=== PATIENT | female | born 1985 | race Caucasian/White ===

== ENCOUNTER → 2016-11-19 | Outpatient (CLI) | payer OTHER ==
--- NOTE | 2016-11-19 14:48 | DIREP ---
PROCEDURE:OBSTETRICAL ULTRASOUND, 2nd AND 3rd TRIMESTER TECHNIQUE:Transabdominal ultrasound of the pelvic contents was performed. COMPARISON:None. INDICATIONS:ANATOMY, 2O WK IUP FINDINGS: NUMBER:Feng. POSITION:Cephalic AMNIOTIC FLUID VOLUME:GILBERTO - 14.33 cm PLACENTA:Posterior, with no evidence of placenta previa. CERVIX:3.09 cm length. HEART RATE:152 bpm BIPARIETAL DIAMETER:5.03 cm (21 W 2 D), 28.7 percentile HEAD CIRCUMFERENCE:19.36 cm (21 W 3 D), 33.5 percentile ABD CIRCUMFERENCE:16.66 cm (21 W 3 D), 41.3 percentile FEMUR LENGTH:3.48 cm (20 W 4 D), 17.9 percentile ESTIMATED WEIGHT:419.75 gm (0 lb, 15oz), 36.7 percentile ULTRASOUND GA:21 W 1 D ULTRASOUND SEBASTIAN:March 31, 2017 ANATOMY CEREBELLUM:2.15 cm NUCHAL FOLD:5.28 mm CISTERNA MAGNA:4.50 mm LATERAL CEREBRAL VENTRICLES:4.15 mm CHOROID PLEXUS:Normal. MIDLINE FALX:Normal. CAVUM SEPTUM PELLUCIDUM:Present. SPINE:Normal. HEART:Normal. UPPER LIP:Normal. STOMACH:Present. KIDNEYS:Normal - no hydronephrosis. BLADDER:Normal. UMBILICAL CORD INSERTION:Normal. CORD VESSEL NUMBER:Normal 3 vessel cord. EXTREMITIES:Normal. CONCLUSION: 1. Single live intrauterine that is in cephalic presentation. 2. No anomalies detected on today's examination. 3. biometrics suggest a gestational age of approximately 21 W 1 D, with an Estimated Weight (EFW) of 419.75 gm (0 lb, 15oz). Ac Dictated by: MIGUE Physician on 11/19/2016 at 02:08 PM Read in [place]
== END | disposition home or self-care (01) ==
LOC: RAD 13:06
PROVIDERS: ATTEND Hospitalist
DX: Z34.82 Encounter for supervision of other normal pregnancy, second trimester (principal); Z3A.20 20 weeks gestation of pregnancy
CPT/HCPCS: 76811

== ENCOUNTER 2017-03-13 21:42 | Inpatient (IN) | payer OTHER ==
[~2017-03-13] VITALS: Ht 162.6 cm; Wt 58.1 kg
--- NOTE | 2017-03-13 21:51 | NUR ---
SEE [facility] FOR ACCURATE MEDICATION ADMINISTRATION TIMES. MEDICATION ADMINISTRATION TIMES MAY OR MAY NOT BE ACCURATE IN [facility].
[2017-03-13 22:00] VITALS: BP 121/60
[2017-03-13] MEDS ORDERED: WATER ONE (22:10)
[2017-03-13] MEDS ORDERED: LR/PITOCIN 1,000 ML IV ONE (22:10)
[2017-03-13] MEDS ORDERED: LIDOCAINE 1% VIAL ONE (22:10)
[2017-03-13] MEDS ORDERED: LACTATED RINGERS 1,000 ML ONE (22:10)
[2017-03-13] MEDS ORDERED: XYLOCAINE IJ PRN (22:30)
[2017-03-13] MEDS ORDERED: LACTATED RINGERS 1,000 ML IV SCH (22:30)
[2017-03-13] MEDS ORDERED: BICITRA PO ONE (22:30)
[2017-03-13 22:32] LABS: HEMOGLOBIN 11.4 g/dL (12.0-15.0); MEAN CELL HGB 28.4 pg (26-34); MEAN CORP VOLUME 85.8 fL (78-100); MEAN PLATELET VOLUME 10.7 fL (7.8-11.0); WHITE BLOOD CELL 18.7 10^3/uL (4.5-11.0)
--- NOTE | 2017-03-13 23:16 | PRM.DELNOT ---
Delivery Summary Delivery: Spont. Vaginal Delivery (@ 2240, clear-colored fluid/membranes throughout, no nuchal cord, no epidural) EBL: 200 Scores: 8 and 9 Sex of : Male Presentation: vtx KITA RIVERA MD Mar 13, 2017 23:16
--- NOTE | 2017-03-13 23:25 | PCM.HP ---
OB - Chief Complaint & HPI Date of Admission: Date of Admission: Mar 13, 2017 at 21:42 Diagnosis Sayra is an intriguing 31yo thin WF h/o X 2, with PNC with me in my office at [facility] who lives in [place], who presented this evening in active labor. She is 38 0/7 weeks' gestation. She was 4cm's dilated in the office earlier today. She presented at 5-6 cm's and made quick progress to fully dilated. She likely has had a high leak of amniotic fluid prior to arrival. She was delivered of a healthy male by nursing staff at 10:40pm Agpars of 8 and 9, weight pending. Placenta still has to be delivered. Cord has not been clamped/cut. Pt is planning on taking her placenta home with her. Chief Complaint/History : 4 Para: 2 EDC: Mar 27, 2017 EGA: 38 0/7 Reason for admission: active labor Admission Nurse Assessment Rev: Yes OB - History Hx of Present Care: Good Care Ultrasounds: Normal mid trimester US Obstetrical Complications: None Medical Complications: None Other Concerns: She is a smoker. Past Family/Social History * Past Medical, Surgical, Family and Obstetric Histories reviewed from chart. GBS Status: Negative OB - Admission Exam Physical Exam HEENT: NCAT Lungs: Clear Abdomen: Gravid Extremities: Normal Reflexes: Normal Cervical Dilatation: other (umbilical cord extruding from vagina; no obvious lacerations on perineum; no active bleeding at the present time) Presentation: vtx OB - Assessment/Plan Assessment Assessment: other (S/P , now needing delivery of the placenta) Plan Other Plan Deliver placenta, repair any lacerations, assess for uterine atony. KITA RIVERA MD Mar 13, 2017 23:24
[2017-03-13] MEDS ORDERED: TYLENOL PO PRN (23:30)
[2017-03-13] MEDS ORDERED: TUCKS TP PRN (23:30)
[2017-03-13] MEDS ORDERED: MOTRIN PO PRN (23:30)
[2017-03-13] MEDS ORDERED: MYLANTA PO PRN (23:30)
[2017-03-13] MEDS ORDERED: NORCO 5MG PO PRN ×2 (23:30)
[2017-03-13] MEDS ORDERED: DERMOPLAST SPRAY TP PRN (23:30)
[2017-03-13] MEDS ORDERED: LANOLIN HYDROUS TP PRN (23:30)
[2017-03-14] MEDS: LR/PITOCIN 500 ML IV SCH ×2 (00:49→00:50)
[2017-03-14 05:53] LABS: BASOPHIL % 0.1 % (0.0-0.2); EOSINOPHIL % 0.2 % (0.0-5.0); HEMOGLOBIN 10.6 g/dL (12.0-15.0); LYMPHOCYTES # 1.8 10^3/uL (1.0-4.8); LYMPHOCYTES % 9.5 % (24.0-44.0); MEAN CELL HGB 28.3 pg (26-34); MEAN CELL HGB CONCENTRATION 32.3 g/dL (33-37); MEAN CORP VOLUME 87.5 fL (78-100); MEAN PLATELET VOLUME 10.5 fL (7.8-11.0); MONOCYTES # 1.2 10^3/uL (0.3-0.8); MONOCYTES % 6.3 % (5.0-12.0); NEUTROPHIL # 15.9 10^3/uL (1.8-7.7); NEUTROPHILS % 83.7 % (41.0-85.0); RED CELL DISTRIBUTION WIDTH 14.3 % (11.5-14.5)
--- NOTE | 2017-03-14 13:21 | PRM.DC ---
OB Discharge Summary Discharge Summary Discharge Diagnosis: Status Post Complications: No Complications Abnormal Lab Results Laboratory Tests Test 03/13/17 22:25 03/14/17 05:24 White Blood Count 18.7 10^3/uL 19.0 10^3/uL Red Blood Count 4.02 10^6/uL 3.75 10^6/uL Hemoglobin 11.4 g/dL 10.6 g/dL Hematocrit 34.5 % 32.8 % Mean Corpuscular Volume 85.8 fL 87.5 fL Mean Corpuscular Hemoglobin 28.4 pg 28.3 pg Mean Corpuscular Hemoglobin Concent 33.0 g/dL 32.3 g/dL Red Cell Distribution Width 14.0 % 14.3 % Platelet Count 259 10^3/uL 233 10^3/uL Mean Platelet Volume 10.7 fL 10.5 fL HIV-1 Antibody NON-REACTIVE Neutrophils (%) (Auto) 83.7 % Lymphocytes (%) (Auto) 9.5 % Monocytes (%) (Auto) 6.3 % Neutrophils # (Auto) 15.9 10^3/uL Lymphocytes # (Auto) 1.8 10^3/uL Monocytes # (Auto) 1.2 10^3/uL Absolute Immature Granulocyte (auto 0.04 10^3 u/L Eosinophils % 0.2 % Basophils % 0.1 % Basophils # 0.0 10^3/uL Eosinophil Count 0.0 10^3/uL Percent Immature Gran (Cell Imm) 0.20 % Medications: Other (No Rx's written for the patient) Discharge Disposition: Stable Discharge Instructions: Pelvic Rest x 6 Weeks, Clinic F/U 1-2 Weeks, Regular Diet, Regular Activity, Call MD for Problems Additional Comments Pt presented in active labor. She did not receive an epidural. No Pitocin augmentation was needed. KITA RIVERA MD Mar 14, 2017 13:21
[2017-03-14] MEDS ORDERED: COLACE PO SCH (21:00)
[2017-03-15 12:22] VITALS: BP 131/58
[2017-03-15] MEDS ORDERED: BOOSTRIX VACCINE SYRINGE IM ONE (13:00)
== END 2017-03-15 14:00 | disposition home or self-care (01) | DRG 560 ==
LOC: UNDOADMOB 21:42 → LND 21:42 → INTOOBSV 23:06 → OBSVTOIN 23:06 → EDPENDDISTM 03-15 14:00
PROVIDERS: ADMIT Hospitalist; ATTEND Hospitalist
PROC: 10E0XZZ Delivery of Products of Conception, External Approach (ICD-10-PCS; principal; 2017-03-13)
DX: O99.334 Smoking (tobacco) complicating childbirth (principal); F17.210 Nicotine dependence, cigarettes, uncomplicated; Z37.0 Single live birth; Z3A.38 38 weeks gestation of pregnancy; Z88.2 Allergy status to sulfonamides
CPT/HCPCS: 36415; 59400; 85025; 85027; 86900; G0378; J2001; J2590; J7120